=== PATIENT | male | born 1960 | race Caucasian/White ===

== ENCOUNTER 2018-11-20 06:33 | Inpatient (IN) | payer OTHER ==
[~2018-11-20] VITALS: Ht 180.3 cm; Wt 84.7 kg
--- NOTE | 2018-11-20 06:51 | NUR ---
PT STATES "I THINK I HAVE A BLOCKAGE IN MY BOWEL." STATES HX OF GI MOTILITY ISSUES S/T CROHNS DISEASE. STATES N. DENIES VOMITING. STATES LAST BMx2 DAYS AGO. NO FEVERS NOTED. ABD PAIN IN LRQ "FEELING LIKE PRESSURE AND STABBING." MONITORING APPLIED. CALL LIGHT WITHIN REACH.
--- NOTE | 2018-11-20 06:56 | NUR ---
REC BS REPORT PT RESTING NADN FAMILY AT [facility] BS
[2018-11-20] MEDS ORDERED: SODIUM CHLORIDE FLUSH 10ML SYR IVF ONE (07:00)
[2018-11-20] MEDS ORDERED: ONDANSETRON ODT 4 MG PO ONE (07:00)
[2018-11-20 07:15] LABS: MEAN CORPUSCULAR HEMOGLOBIN 31.6 pg (27.5-34.5); MEAN CORPUSCULAR HGB CONC 34.2 g/dL (33.2-36.2); MEAN CORPUSCULAR VOLUME 92.4 fL (81-97); MEAN PLATELET VOLUME 7.6 fL (7.4-10.4); PLATELET COUNT 464 x10^3/uL (130-400); RED BLOOD COUNT 5.24 x10^6/uL (4.38-5.82); RED CELL DISTRIBUTION WIDTH 13.4 % (9.4-14.8)
[2018-11-20] MEDS ORDERED: HYDROmorphone 2 MG/ML, 1ML ONE ×2 (07:17→09:00)
[2018-11-20] MEDS ORDERED: ONDANSETRON 2MG/ML, 2ML ONE (07:17)
[2018-11-20 07:26] LABS: ALANINE AMINOTRANSFERASE 26 U/L (12-78); ALBUMIN 4.1 g/dL (3.4-5.0); ANION GAP 10 mmol/L (5-15); CALCIUM 9.7 mg/dL (8.5-10.1); CHLORIDE 103 mmol/L (98-107); CREATININE 1.16 mg/dL (0.7-1.3)
[2018-11-20 07:28] LABS: ALKALINE PHOSPHATASE 53 U/L (45-117); BILIRUBIN,TOTAL 2.7 mg/dL (0.2-1.0); TOTAL PROTEIN 7.7 g/dL (6.4-8.2)
[2018-11-20] MEDS: HYDROmorphone 2 MG/ML, 1ML IVPush PRN ×2 (07:30→09:10)
[2018-11-20 08:13] LABS: MD YES
[2018-11-20 08:19] LABS: <PLATELET ESTIMATE> INCREASED; <PLT MORPHOLOGY> NORMAL PLT MORPH; <RBC MORPHOLOGY> NORMAL; LYMPH#(MANUAL) 3.28 x10^3/uL (1-3.4); LYMPHS% (MANUAL) 10 % (22-44); MONOS#(MANUAL) 1.31 x10^3/uL (0.3-2.7); MONOS% (MANUAL) 4 % (2-9); SEG#(MANUAL) 28.21 x10^3/uL (1.8-6.8); SEGS% (MANUAL) 86 % (42-75)
[2018-11-20] MEDS ORDERED: OMNIPAQUE 350 MG/ML, 100ML BOTTLE ONE (10:12)
[2018-11-20 10:41] LABS: MICROSCOPIC NOT IND
[2018-11-20 10:51] LABS: CULTURE INDICATED? NO
--- NOTE | 2018-11-20 11:01 | NUR ---
MARGARITA SANTOS RESTING FAMILY AT THE BS WAITING ON A SURG CON
[2018-11-20] MEDS ORDERED: LIDOCAINE GEL 2%, 5ML TP ONE (11:30)
[2018-11-20] MEDS: NICOTINE 21 MG/24 HR PATCH.TD24 TD SCH (12:00)
[2018-11-20 12:30] VITALS: BP 118/84
[2018-11-20] MEDS ORDERED: ONDANSETRON 2MG/ML, 2ML IVPush PRN (13:30)
[2018-11-20] MEDS: SODIUM CHLORIDE 0.9% 1,000 ML IV SCH (13:32)
[2018-11-20] MEDS: morphine SULFATE 10 MG/ML, 1ML IVPush PRN ×2 (13:37→19:44)
[2018-11-20 13:48] VITALS: BP 118/84
[2018-11-20 20:32] VITALS: BP 99/66
[2018-11-20] MEDS ORDERED: DIPHENHYDRAMINE 25 MG CAPSULE PO PRN (23:30)
[2018-11-21] MEDS: morphine SULFATE 10 MG/ML, 1ML IVPush PRN ×2 (01:18→01:56)
[2018-11-21 01:46] VITALS: BP 103/67
[2018-11-21] MEDS: SODIUM CHLORIDE 0.9% 1,000 ML IV SCH ×2 (01:57→14:40)
[2018-11-21 06:19] LABS: BASOPHILS # (AUTO) 0.07 x10^3/uL (0-0.1); BASOPHILS % (AUTO) 1 % (0-1); EOSINOPHILS # (AUTO) 0.18 x10^3/uL (0-0.4); EOSINOPHILS % (AUTO) 1 % (1-7); LYMPHOCYTES # (AUTO) 3.72 x10^3/uL (1-3.4); LYMPHOCYTES % (AUTO) 28 % (22-44); MD NO; MEAN CORPUSCULAR HEMOGLOBIN 31.6 pg (27.5-34.5); MEAN CORPUSCULAR HGB CONC 33.9 g/dL (33.2-36.2); MEAN CORPUSCULAR VOLUME 93.1 fL (81-97); MEAN PLATELET VOLUME 7.8 fL (7.4-10.4); MONOCYTES # (AUTO) 0.91 x10^3/uL (0.2-0.8); MONOCYTES % (AUTO) 7 % (2-9); NEUTROPHILS # (AUTO) 8.52 x10^3/uL (1.8-6.8); NEUTROPHILS % (AUTO) 64 % (42-75); PLATELET COUNT 327 x10^3/uL (130-400); RED BLOOD COUNT 4.48 x10^6/uL (4.38-5.82); RED CELL DISTRIBUTION WIDTH 13.9 % (9.4-14.8)
[2018-11-21 06:41] LABS: ALANINE AMINOTRANSFERASE 21 U/L (12-78); ALBUMIN 3.5 g/dL (3.4-5.0); ANION GAP 6 mmol/L (5-15); CALCIUM 8.5 mg/dL (8.5-10.1); CHLORIDE 106 mmol/L (98-107); CREATININE 1.03 mg/dL (0.7-1.3)
[2018-11-21 06:42] LABS: ALKALINE PHOSPHATASE 47 U/L (45-117); BILIRUBIN,TOTAL 2.3 mg/dL (0.2-1.0); TOTAL PROTEIN 6.5 g/dL (6.4-8.2)
[2018-11-21 08:17] VITALS: BP 112/73
[2018-11-21] MEDS: NICOTINE 21 MG/24 HR PATCH.TD24 TD SCH (12:00)
[2018-11-21 15:18] VITALS: BP 116/76
== END 2018-11-21 16:55 | disposition home or self-care (01) | DRG 388 ==
LOC: ED 10:28 → EDIP 11:31 → 4NOR 11:52 → DCLOUNGE 11-21 16:49
PROVIDERS: ADMIT Hospitalist; ATTEND Hospitalist
DX: K56.600 Partial intestinal obstruction, unspecified as to cause (principal); R65.11 Systemic inflammatory response syndrome (SIRS) of non-infectious origin with acute organ dysfunction; K50.90 Crohn's disease, unspecified, without complications; Z90.49 Acquired absence of other specified parts of digestive tract; F17.210 Nicotine dependence, cigarettes, uncomplicated; I10 Essential (primary) hypertension; K80.20 Calculus of gallbladder without cholecystitis without obstruction; D47.3 Essential (hemorrhagic) thrombocythemia; D72.829 Elevated white blood cell count, unspecified; Z23 Encounter for immunization
CPT/HCPCS: 36415; 74018; 74022; 74177; 80053; 81003; 83690; 85025; 90656; 96374; 96375; G0378; J1170; Q0162; Q9967; J2270; J7030; J7512

== ENCOUNTER 2020-09-15 04:22 | Emergency (ER) | payer OTHER ==
[~2020-09-15] VITALS: Ht 180.3 cm; Wt 87.8 kg
[~2020-09-15 04:22] MED LIST: ADAL40PE7 SQ; AMOX1TAB64 PO; COLE625T12 PO; METO-99 PO; METO10TA2 PO; METO25TA35 PO; RABE20TA18 PO
--- NOTE | 2020-09-15 04:41 | NUR ---
THIS IS A 60 YO M W/ C/O DRAINAGE FROM SURGICAL INCISION SITE STARTING THIS MORNING. PT REPORTS EXPLORATORY LAPAROTOMY W/ BOWEL RESECTION FOR SBO ON 09/04/20. PT WAS DC FROM THIS FACILITY ON 09/13/20. PT HAS FOLLOWUP APT W/ SURGEON TODAY AT 2PM. PT RESTING ON [employer] W/ CALL LIGHT IN REACH. IRIS GARCIA AT BEDSIDE FOR CULTURE OF ABD DRAINAGE. RESP EVEN AND UNLABORED, MAL.
[2020-09-15] MEDS ORDERED: ONDANSETRON 2MG/ML, 2ML ONE (04:46)
[2020-09-15] MEDS ORDERED: MORPHINE SULFATE 4 MG/ML, 1ML ONE ×2 (04:46→06:17)
[2020-09-15] MEDS: MORPHINE SULFATE 4 MG/ML, 1ML IVPush PRN ×2 (05:00→06:24)
[2020-09-15] MEDS ORDERED: ONDANSETRON 2MG/ML, 2ML IVPush ONE (05:00)
[2020-09-15] MEDS ORDERED: SODIUM CHLORIDE FLUSH 10ML SYR IVF ONE (05:00)
[2020-09-15] MEDS ORDERED: SODIUM CHLORIDE 0.9% 1,000ML IVBOLUS ONE (05:00)
--- NOTE | 2020-09-15 05:03 | NUR ---
PIV STARTED, LABS DRAWN AND PT MEDICATED PER EMAR. LAB IN ROOM FOR 2ND SET OF CULTURES.
[2020-09-15 05:22] LABS: BASOPHILS % (AUTO) 1 % (0-1); EOSINOPHILS % (AUTO) 1 % (1-7); LYMPHOCYTES % (AUTO) 19 % (22-44); MEAN CORPUSCULAR HEMOGLOBIN 29.7 pg (27.5-34.5); MEAN CORPUSCULAR HGB CONC 33.6 g/dL (33.2-36.2); MONOCYTES % (AUTO) 8 % (2-9); NEUTROPHILS % (AUTO) 70 % (42-75); PLATELET COUNT 504 x10^3/uL (130-400); RED BLOOD COUNT 4.33 x10^6/uL (4.38-5.82); RED CELL DISTRIBUTION WIDTH 13.9 % (9.4-14.8)
--- NOTE | 2020-09-15 05:24 | NUR ---
PT REPORTS PAIN IMPROVED AFTER MEDS. PT PROVIDED W/ PILLOW PER REQUEST. PT NPO AT THIS TIME, PROVIDED W/ MOUTH SWABS FOR COMFORT.
[2020-09-15 05:33] LABS: ALBUMIN 2.9 g/dL (3.4-5.0); ANION GAP 10 mmol/L (5-15); CALCIUM 8.7 mg/dL (8.5-10.1); CHLORIDE 107 mmol/L (98-107)
[2020-09-15 05:40] LABS: ALANINE AMINOTRANSFERASE 26 U/L (12-78); ALKALINE PHOSPHATASE 92 U/L (45-117); BILIRUBIN,TOTAL 0.8 mg/dL (0.2-1.0); CREATININE 1.37 mg/dL (0.7-1.3); TOTAL PROTEIN 7.4 g/dL (6.4-8.2)
[2020-09-15 05:45] LABS: MD SCAN
--- NOTE | 2020-09-15 06:12 | NUR ---
PT TO CT.
[2020-09-15] MEDS ORDERED: OMNIPAQUE 350 MG/ML, 100ML BOTTLE ONE (06:18)
--- NOTE | 2020-09-15 06:37 | NUR ---
PT RESTING ON GURNEY W/ CALL LIGHT IN REACH AND SIDE RAILS UPX2. VSS, NADN. AWAITING CT RESULTS.
--- NOTE | 2020-09-15 07:01 | NUR ---
ALL TESTS RESULTED. PT IS UP FOR RECHECK AT THIS TIME.
--- NOTE | 2020-09-15 07:07 | NUR ---
REPORT GIVEN TO UZMA ROBLES. PT RESTING ON HOSPITAL BED W/ GARAGE DOORS DOWN AND SITTER OUTSIDE FOR SAFETY. RESP EVEN AND UNLABORED, MAL.
[2020-09-15 08:55] VITALS: BP 129/84
== END 2020-09-15 08:56 | disposition home or self-care (01) ==
LOC: ED 05:35
DX: G89.18 Other acute postprocedural pain (principal); R10.9 Unspecified abdominal pain; D72.829 Elevated white blood cell count, unspecified; I10 Essential (primary) hypertension; K50.90 Crohn's disease, unspecified, without complications; Z90.89 Acquired absence of other organs
CPT/HCPCS: 36415; 74177; 80053; 83605; 85025; 87040; 87070; 87205; 96361; 96374; 96375; 96376; 99285; J2270; J2405; J7030; Q9967